=== PATIENT | male | born 1975 | race Caucasian/White ===

== ENCOUNTER 2021-03-05 00:34 | Inpatient (IN) | payer OTHER, SELFPAY ==
[2021-03-05 00:34] VITALS: BMI 37.5
[2021-03-05 00:44] VITALS: BP 154/94; PULSE 76; RESP 15; TEMP 36.6; O2SAT 96
[2021-03-05] MEDS: acetaminophen 325 mg Tablet 650 MG PO (01:41)
[2021-03-05 06:00] VITALS: BP 159/82; PULSE 83; RESP 18; TEMP 36.6; O2SAT 97
--- NOTE | 2021-03-05 07:08 | W.PM.NPUH&PS ---
Providers/Chief Complaint Admitting Physician: Pasquale Gordon MD Chief Complaint: SI HPI NPU History of Present Illness Donald Forrester is a 46 year old male who presented to an outside hospital reporting stress, depression, and needing to make some changes in his life. There was a conversation that he reports led to a misunderstanding that led to him being put on a 96-hour hold, according to him. He was transferred to [facility] and admitted to the neuropsychiatric unit for definitive treatment of those issues. He presents today reporting that he has had one past psychiatric hospitalization about ten years ago and has never really had outpatient services, except for a short period of time after that hospitalization. He reports he was on medication years ago which was Zoloft. He reports he smokes about a pack of cigarettes a day. He has alcohol one to two times a month, denies marijuana or any other illicit drug use. He has never been to rehab and never had a DUI. He reports that he might be a bit high strung, but in general he had not had difficulties until about ten years ago when he was going through a divorce. He reports that that was tough like divorces are, but after which he got himself back together and continued functioning well. He reports that he acknowledges that he probably needs to go to a therapist and be able to talk about some of his issues and concerns. He says most of his concerns are surrounding a relationship that he has been in for years, where he gives a lot and does not necessarily get his fair share in return. He also has a very stressful job and the combination at times can cause him to have frustration. Recently he has really had issues with his relationship with a significant other, but he reports that his mom had some concerns about him being stressed and wanting him to have someone to talk to, so he agreed to go to the hospital with her to accomplish that. It sounds as if a Columbian scale was done, and he reports they asked him if he was suicidal to which he said no. They said if he were to commit suicide, how he would do it, and he answered that question, and he reports that he was just being honest, that if he ever thought he would kill himself, he would definitely do it by shooting himself because he would need it to be quick and that took him down a rabbit hole and the person did not even sit down and talk about what he meant by that, they just left the room and the next thing he knew, they said he had to come to [facility] and he did not have a choice. We had a long conversation about the stressors in his life, and he agreed, and we discussed that there likely would be benefit from having a counselor to talk through those issues and challenge him to be accountable to what he wants to do, versus what he does. He says he is agreeable to that outcome. He denied any current need for medication and reports that he does not feel that he even should have been forced to come here. We took time and reached out to his mother, who agreed that she did not think he was suicidal, and that there had to be a misunderstanding, but she did want him to go get help. We discussed the risks, benefits, and alternatives of monitoring him overnight with a plan for discharge in the morning, and he understood and agreed to proceed as is documented in this note. PSYCHIATRIC HISTORY: As above. SUBSTANCE ABUSE HISTORY: As above. FAMILY HISTORY: He denied any contributory family history. DEVELOPMENTAL HISTORY: He denies issues with his mother?s or delivery of him. He met all developmental milestones on time. He denies any speech therapy, learning support, emotional support, or special education classes. PSYCHOSOCIAL HISTORY: He reports that his parents were together when he was born. He reports he had a good childhood. He denies any emotional, physical, or sexual abuse. He graduated from high school. He endorsed having some additional training. He endorses being a heterosexual with his longest relationship being several years. He has been once and once. He has a daughter and reports that he more or less has raised his girlfriend?s two children. He has never been in the . His longest job was over eight years. He currently lives in a house. LEGAL HISTORY: Denied. MEDICAL HISTORY: He denied any significant issues. Meds NPU Home Medications Medication Instructions Recorded Confirmed Last Taken Type Aspir-81 81 mg PO DAILY 03/05/21 03/05/21 Unknown History lisinopril 10 mg PO DAILY 03/05/21 03/05/21 Unknown History Allergies Allergy/AdvReac Type Severity Reaction Status Date / Time adhesive Allergy ALGY-Rash Verified 03/05/21 00:38 honey Allergy ALGY-Swell Verified 03/05/21 00:42 Lip/Tongue/Throat Mental Status Exam MSE Comments: This is an obese, white male, in hospital scrubs, with adequate dress, grooming, and eye contact. No abnormal movements. Cooperative with exam in no acute distress. Speech was normal rate and volume. Mood described as good but frustrated with being hospitalized. Affect congruent. Thought process, organized. Thought content: patient denied any suicidal or homicidal ideation, there were no delusions reported or noted, patient denied any auditory or visual hallucinations. Attention, concentration, and memory appear intact but were not formally tested. He is alert and oriented times three. Insight and judgment are good. Vitals/I&O/Wt Last Vital Signs Temp 97.8 F 03/05/21 06:00 Pulse 83 03/05/21 06:00 Resp 18 03/05/21 06:00 BP 159/82 03/05/21 06:00 Pulse Ox 97 03/05/21 06:00 Weight last 48 hrs Weight 120.202 kg A&P Assessment and plan (1) Adjustment disorder with mixed disturbance of emotions and conduct: Status: Acute (2) Anxiety: Status: Acute (3) Depression: Status: Acute Additional A&P Information This is a 46-year-old, white male, with partner relational problems, adjustment disorder with mixed disturbance of emotion and conduct, who presents reporting that he is dealing with a lot of stress and would benefit from referral to outpatient treatment but denying a need for inpatient treatment. RECOMMENDATION AND PLAN: 1. Continue current medication. 2. Encourage individual, group, and milieu therapy. 3. Continue q-15 minute checks for safety. 4. We will evaluate overnight and discharge in the morning if no changes. Involuntary Hold Information 96 Hour Hold: 96 Hour Involuntary Admission: Yes 96 Hour Hold Ending Date: 03/11/21 96 Hour Hold Ending Time: 00:01 Attestations NPU Medical Necessity Statement*: Inpatient hospitalization is medically necessary and the clinically appropriate intervention, at this time. We will monitor medications and make changes as indicated. Patient will be in the hospital for over two midnights. Likely length of stay is one to three days. Coding Level of Care Code Acute Arts Manager for Bubba Maya Diagnoses Adjustment disorder with mixed disturbance of emotions and conduct F43.25 Anxiety F41.9 Depression F32.A
--- NOTE | 2021-03-05 13:08 | NPU.GN ---
[facility] Unit Group Topic:Wheel of Positive thoughts versus Negative Thoughts General Mood of Group: Donald did not attend or participate in group today.
[2021-03-05 14:00] VITALS: BP 159/92; PULSE 88; RESP 20; TEMP 36.6; O2SAT 96
[2021-03-05 21:23] VITALS: BP 143/81; PULSE 79; RESP 18; TEMP 36.6; O2SAT 98
[2021-03-06 05:30] VITALS: BP 172/101; PULSE 80; RESP 17; TEMP 36.9; O2SAT 97
[2021-03-06 10:00] VITALS: BP 172/101; PULSE 80; RESP 17; TEMP 36.9; O2SAT 97
--- NOTE | 2021-03-06 10:03 | W.PM.NPUDCS ---
Diagnoses at Discharge Discharge Diagnosis (1) Adjustment disorder with mixed disturbance of emotions and conduct: Status: Acute (2) Anxiety: Status: Acute (3) Depression: Status: Acute Reason for Visit Reason for Visit: SI Brief History: History of Present Illness Donald Forrester is a 46 year old male who presented to an outside hospital reporting stress, depression, and needing to make some changes in his life. There was a conversation that he reports led to a misunderstanding that led to him being put on a 96-hour hold, according to him. He was transferred to [facility] and admitted to the neuropsychiatric unit for definitive treatment of those issues. He presents today reporting that he has had one past psychiatric hospitalization about ten years ago and has never really had outpatient services, except for a short period of time after that hospitalization. He reports he was on medication years ago which was Zoloft. He reports he smokes about a pack of cigarettes a day. He has alcohol one to two times a month, denies marijuana or any other illicit drug use. He has never been to rehab and never had a DUI. He reports that he might be a bit high strung, but in general he had not had difficulties until about ten years ago when he was going through a divorce. He reports that that was tough like divorces are, but after which he got himself back together and continued functioning well. He reports that he acknowledges that he probably needs to go to a therapist and be able to talk about some of his issues and concerns. He says most of his concerns are surrounding a relationship that he has been in for years, where he gives a lot and does not necessarily get his fair share in return. He also has a very stressful job and the combination at times can cause him to have frustration. Recently he has really had issues with his relationship with a significant other, but he reports that his mom had some concerns about him being stressed and wanting him to have someone to talk to, so he agreed to go to the hospital with her to accomplish that. It sounds as if a Columbian scale was done, and he reports they asked him if he was suicidal to which he said no. They said if he were to commit suicide, how he would do it, and he answered that question, and he reports that he was just being honest, that if he ever thought he would kill himself, he would definitely do it by shooting himself because he would need it to be quick and that took him down a rabbit hole and the person did not even sit down and talk about what he meant by that, they just left the room and the next thing he knew, they said he had to come to [facility] and he did not have a choice. We had a long conversation about the stressors in his life, and he agreed, and we discussed that there likely would be benefit from having a counselor to talk through those issues and challenge him to be accountable to what he wants to do, versus what he does. He says he is agreeable to that outcome. He denied any current need for medication and reports that he does not feel that he even should have been forced to come here. We took time and reached out to his mother, who agreed that she did not think he was suicidal, and that there had to be a misunderstanding, but she did want him to go get help. We discussed the risks, benefits, and alternatives of monitoring him overnight with a plan for discharge in the morning, and he understood and agreed to proceed as is documented in this note. PSYCHIATRIC HISTORY: As above. SUBSTANCE ABUSE HISTORY: As above. FAMILY HISTORY: He denied any contributory family history. DEVELOPMENTAL HISTORY: He denies issues with his mother?s or delivery of him. He met all developmental milestones on time. He denies any speech therapy, learning support, emotional support, or special education classes. PSYCHOSOCIAL HISTORY: He reports that his parents were together when he was born. He reports he had a good childhood. He denies any emotional, physical, or sexual abuse. He graduated from high school. He endorsed having some additional training. He endorses being a heterosexual with his longest relationship being several years. He has been once and once. He has a daughter and reports that he more or less has raised his girlfriend?s two children. He has never been in the . His longest job was over eight years. He currently lives in a house. LEGAL HISTORY: Denied. MEDICAL HISTORY: He denied any significant issues. Hospital Course Hospital Course He slowly acclimated to the individual, group and milieu therapies provided. He was not started on medication. He did not require any significant PRN medication. He was able to contract for safety outside hospital prior to discharge. During the hospitalization, patient had routine laboratory studies which were within normal limits except for few outliers. Additionally there was a general medical evaluation which was also within normal limits and revealed no new acute processes. Discharge Summary: At the time of discharge, lethality was denied and psychosis was resolving. Mood and anxiety were well managed. Patient endorsed a plan to follow-up with the aftercare recommendations of the treatment team. Patient was evaluated and deemed to be absent credible lethality, and had achieved the maximum benefit from an inpatient hospitalization, so was discharged. Involuntary Hold Information 96 Hour Hold: 96 Hour Involuntary Admission: Yes 96 Hour Hold Ending Date: 03/11/21 96 Hour Hold Ending Time: 00:01 Mental Status Exam MSE Comments: This is an obese, white male, in hospital scrubs, with adequate dress, grooming, and eye contact. No abnormal movements. Cooperative with exam in no acute distress. Speech was normal rate and volume. Mood described as good but frustrated with being hospitalized. Affect congruent. Thought process, organized. Thought content: patient denied any suicidal or homicidal ideation, there were no delusions reported or noted, patient denied any auditory or visual hallucinations. Attention, concentration, and memory appear intact but were not formally tested. He is alert and oriented times three. Insight and judgment are good. Cognition: Patient Appearance: Appropriate Level of Consciousness: Awake, Alert and Appropriate Ability to Follow Directions: Excellent Patient Orientation (long list): Person, Place, Time, Birthday and Month Comprehension Ability: No Impairment Hallucination Type: None Delusion Description: Not Present Thought Process: Appropriate Affect: Affect Description: Appropriate and Calm Behavior: Patient Behavior: Appropriate and Cooperative Speech Pattern: Appropriate and Clear Discharge Data Vitals: Last Vital Signs Temp 98.4 F 03/06/21 10:00 Pulse 80 03/06/21 10:00 Resp 17 03/06/21 10:00 BP 172/101 03/06/21 10:00 Pulse Ox 97 03/06/21 10:00 Discharge Plan Discharge Patient Disposition: Home Condition: Stable Prescriptions: Continued lisinopril 10 mg Tablet 10 mg PO DAILY RF: 0 Aspir-81 tablet 81 mg PO DAILY RF: 0 Discharge Orders: Discharge Order (Routine); Ordered 03/06/21 Ordered By: David Grullon Referrals: [facility]: Ashwin Dowell MD [Other] Discharge Diet: Regular Discharge Activity: Resume usual activity Patient Instructions: Generalized Anxiety Disorder, Opioid Safety Discharge Attestations NPU Time Spent in Discharge Care*: less than 30 min Specific Discharge Activities: Specific discharge activities: educating patient, discussing with transplant case manager/social workers/dc planners, documenting/other paperwork and evaluating patient/reviewing data Coding Level of Care Code Acute Chg FW DC note Diagnoses Adjustment disorder with mixed disturbance of emotions and conduct F43.25 Anxiety F41.9 Depression F32.A
== END 2021-03-06 10:13 | disposition home or self-care (01) | DRG 882 ==
PROVIDERS: Admitting Provider Psychiatry & Neurology Psychiatry; Visit Provider Psychiatry & Neurology Psychiatry
DX: F43.25 Adjustment disorder with mixed disturbance of emotions and conduct (principal); F41.9 Anxiety disorder, unspecified; F32.A Depression, unspecified; F17.210 Nicotine dependence, cigarettes, uncomplicated; Z63.0 Problems in relationship with spouse or partner
CPT/HCPCS: 36415; 85610; 97165